=== PATIENT | female | born 1985 | race Caucasian/White ===

== ENCOUNTER 2017-02-14 11:05 | Emergency (ER) | payer SELFPAY ==
[~2017-02-14] VITALS: Ht 172.7 cm; Wt 84.0 kg
[~2017-02-14 11:05] MED LIST: FERR256T PO; IBUP-779 PO; MULT-1146 PO
[2017-02-14 19:01] LABS: BASOPHILS % 0.8 % (0.0-2.0); EOSINOPHILS % 2.4 % (0.0-5.0); HEMATOCRIT. 37.5 % (36.0-48.0); HEMOGLOBIN. 12.6 g/dL (12.0-16.0); MEAN CORPUSCULAR HEMOGLOBIN 28.6 pg (28.0-32.0); MEAN CORPUSCULAR VOLUME 84.7 fL (81.0-99.0); MEAN PLATELET VOLUME 8.4 fl (7.4-10.4); MONOCYTES % 7.3 % (2.0-8.0); NEUTROPHILS % 63.5 % (40.0-76.0); PLATELET 253 x1000/uL (130-400); RED BLOOD CELL COUNT 4.43 mill/uL (4.2-5.4); RED CELL DISTRIBUTION WIDTH 13.9 % (11.6-14.6)
[2017-02-14 19:06] LABS: CHLORIDE 107 mEq/L (98-107)
[2017-02-14 19:09] LABS: CARBON DIOXIDE 24 mEq/L (21-32)
[2017-02-14 19:10] LABS: CLARITY URINE TURBID (CLEAR); COLOR URINE YELLOW (YELLOW); GLUCOSE URINE NEGATIVE (NEGATIVE); KETONES URINE NEGATIVE (NEGATIVE); LEUKOCYTE ESTERASE URINE NEGATIVE (NEGATIVE); NITRITE URINE NEGATIVE (NEGATIVE); OCCULT BLOOD URINE NEGATIVE (NEGATIVE); PH URINE 8.5 (4.5-8.0); PROTEIN URINE NEGATIVE (NEGATIVE); SPECIFIC GRAVITY URINE 1.016 (1.005-1.030); UROBILINOGEN URINE 0.2 E.U./dL (0.2-1.0)
[2017-02-14 19:29] LABS: B-HCG QUANTITATIVE 56401 mIU/mL (<3)
[2017-02-14 20:53] VITALS: BP 126/82
== END 2017-02-14 20:54 | disposition home or self-care (01) ==
LOC: ER 18:35
DX: O20.0 Threatened abortion (principal); Z3A.01 Less than 8 weeks gestation of pregnancy
CPT/HCPCS: 36415; 76801; 80048; 81001; 84702; 85025; 86850; 86900; 99285

== ENCOUNTER 2017-09-28 10:07 | Observation (INO) | payer MEDICAID ==
[~2017-09-28] VITALS: Ht 165.1 cm; Wt 89.4 kg
== END 2017-09-28 11:55 | disposition home or self-care (01) ==
LOC: L&D 10:07
PROVIDERS: ADMIT Obstetrics & Gynecology; ATTEND Obstetrics & Gynecology
DX: O62.9 Abnormality of forces of labor, unspecified (principal); Z3A.39 39 weeks gestation of pregnancy
CPT/HCPCS: G0378 ×2

== ENCOUNTER 2017-09-30 11:39 | Observation (INO) | payer MEDICAID ==
[~2017-09-30] VITALS: Ht 167.6 cm; Wt 89.4 kg
== END 2017-09-30 12:32 | disposition home or self-care (01) ==
LOC: L&D 11:39
PROVIDERS: ADMIT Obstetrics & Gynecology; ATTEND Obstetrics & Gynecology
DX: O62.9 Abnormality of forces of labor, unspecified (principal); Z3A.39 39 weeks gestation of pregnancy
CPT/HCPCS: 99281; G0378

== ENCOUNTER 2017-10-04 23:27 | Inpatient (IN) | payer MEDICAID ==
[~2017-10-04] VITALS: Ht 167.6 cm; Wt 89.8 kg
[~2017-10-04 23:27] MED LIST changes: -IBUP-779 PO
[2017-10-05] MEDS ORDERED: DEXT 5%/LR + PITOCIN 20UNITS/L 1,000 ML IV SCH ×2 (00:16→05:10)
[2017-10-05] MEDS ORDERED: NALOXONE HCL 0.4 MG/ML 1ML VIAL IM PRN (00:30)
[2017-10-05] MEDS ORDERED: BUTORPHANOL TARTRATE 2 MG/ML VIAL IV PRN (00:30)
[2017-10-05] MEDS ORDERED: METHYLERGONOVINE MALEATE 0.2 MG/ML IM PRN (00:30)
[2017-10-05] MEDS ORDERED: MISOPROSTOL 100MCG TABLET VG SCH (00:30)
[2017-10-05] MEDS ORDERED: LIDOCAINE HCL 1% 20ML VIAL (Pyxis) INJ INFIL SCH (00:30)
[2017-10-05] MEDS: LACTATED RINGERS 1,000 ML IV SCH ×2 (01:28→01:56)
[2017-10-05 02:14] LABS: CHLORIDE 104 mEq/L (98-107)
[2017-10-05 02:15] LABS: BASOPHILS % 0.1 % (0.0-2.0); EOSINOPHILS % 0.5 % (0.0-5.0); HEMATOCRIT. 37.6 % (36.0-48.0); HEMOGLOBIN. 12.7 g/dL (12.0-16.0); LYMPHOCYTES % 15.3 % (20.0-50.0); MEAN CORPUSCULAR HEMOGLOBIN 30.8 pg (28.0-32.0); MEAN CORPUSCULAR VOLUME 91.2 fL (81.0-99.0); MEAN PLATELET VOLUME 9.6 fl (7.4-10.4); MONOCYTES % 9.2 % (2.0-8.0); NEUTROPHILS % 74.9 % (40.0-76.0); PLATELET 227 x1000/uL (130-400); RED BLOOD CELL COUNT 4.12 mill/uL (4.2-5.4); RED CELL DISTRIBUTION WIDTH 13.8 % (11.6-14.6)
[2017-10-05 02:17] LABS: CLARITY URINE CLOUDY (CLEAR); COLOR URINE YELLOW (YELLOW); KETONES URINE NEGATIVE (NEGATIVE); LEUKOCYTE ESTERASE URINE NEGATIVE (NEGATIVE); NITRITE URINE NEGATIVE (NEGATIVE); OCCULT BLOOD URINE 1+ (NEGATIVE); PH URINE 7.5 (4.5-8.0); PROTEIN URINE 1+ (NEGATIVE); SPECIFIC GRAVITY URINE 1.022 (1.005-1.030)
[2017-10-05 02:33] LABS: D-DIMER 3.83 mg/L FEU (<0.50); INR 0.9; PARTIAL THROMBOPLASTIN TIME 25.2 sec (23.4-31.0); PROTHROMBIN TIME 9.9 sec (9.4-11.6)
[2017-10-05 02:49] LABS: *BARBITURATES SCREEN URINE NEGATIVE (NEGATIVE); *BENZODIAZEPINES SCREEN URINE NEGATIVE (NEGATIVE)
[2017-10-05 02:50] LABS: *AMPHETAMINES SCREEN URINE NEGATIVE (NEGATIVE); *COCAINE SCREEN URINE NEGATIVE (NEGATIVE); CANNABINOID URINE SCREEN NEGATIVE (NEGATIVE); METHADONE URINE SCREEN NEGATIVE (NEGATIVE); OPIATES URINE SCREEN NEGATIVE (NEGATIVE); PHENCYCLIDINE URINE SCREEN NEGATIVE (NEGATIVE)
[2017-10-05] MEDS ORDERED: LIDOCAINE HCL/PF 1% 10 MG/ML 5ML VIAL IJ SCH (04:15)
[2017-10-05] MEDS ORDERED: GLYCERIN/WITCH HAZEL LEAF MEDICATED PAD TOP PRN (05:15)
[2017-10-05] MEDS ORDERED: DIPHENHYDRAMINE 25MG CAPSULE PO PRN (05:15)
[2017-10-05] MEDS ORDERED: BENZOCAINE/LANOLIN/ALOE VERA SPRAY TOP PRN (05:15)
[2017-10-05] MEDS ORDERED: ACETAMINOPHEN WITH CODEINE 300/30MG TABLET PO PRN ×2 (05:15)
[2017-10-05] MEDS ORDERED: BISACODYL 10MG SUPP PR PRN (05:15)
[2017-10-05] MEDS ORDERED: LANOLIN OINT 0.25 GM TUBE TOP PRN (05:15)
[2017-10-05] MEDS ORDERED: HEMORRHOIDAL SUPP PR PRN (05:15)
[2017-10-05 06:30] VITALS: BP 142/86
[2017-10-05 08:00] VITALS: BP 146/87
[2017-10-05] MEDS: PRENATAL VIT/FE FUMARATE/FA TABLET PO SCH (08:46)
[2017-10-05] MEDS: IBUPROFEN 400MG TABLET PO PRN ×2 (11:37→18:38)
[2017-10-05] MEDS ORDERED: TETANUS, DIPHTHERIA, PERTUSSIS VAC/PF 0.5ML (>7YR OLD) IM ONE (12:00)
[2017-10-05 12:57] LABS: HEPATITIS B SURFACE ANTIGEN NEGATIVE; RUBELLA IGG 26.6 IU/mL (4.99-10)
[2017-10-05 16:46] VITALS: BP 113/69
[2017-10-05] MEDS ORDERED: DOCUSATE SODIUM 100MG CAPSULE PO SCH (21:00)
[2017-10-05 22:00] VITALS: BP 132/73
[2017-10-06 06:00] VITALS: BP 115/71
[2017-10-06 07:08] LABS: BASOPHILS % 0.3 % (0.0-2.0); EOSINOPHILS % 1.5 % (0.0-5.0); HEMATOCRIT. 27.5 % (36.0-48.0); HEMOGLOBIN. 9.4 g/dL (12.0-16.0); LYMPHOCYTES % 22.3 % (20.0-50.0); MEAN CORPUSCULAR HEMOGLOBIN 31.3 pg (28.0-32.0); MEAN PLATELET VOLUME 9.2 fl (7.4-10.4); MONOCYTES % 7.7 % (2.0-8.0); NEUTROPHILS % 68.2 % (40.0-76.0); PLATELET 191 x1000/uL (130-400); RED BLOOD CELL COUNT 2.99 mill/uL (4.2-5.4)
[2017-10-06] MEDS: PRENATAL VIT/FE FUMARATE/FA TABLET PO SCH (09:13)
[2017-10-06 09:14] VITALS: BP 115/71
[2017-10-06] MEDS: IBUPROFEN 400MG TABLET PO PRN (09:14)
[2017-10-06] MEDS ORDERED: FERROUS SULFATE 325MG TABLET PO SCH (12:10)
== END 2017-10-06 12:00 | disposition home or self-care (01) | DRG 560 ==
LOC: L&D 23:27 → OBSVTOIN 23:27 → 7EST PP/OB 10-05 06:22
PROVIDERS: ADMIT Specialist; ATTEND Specialist
PROC: 0W8NXZZ Division of Female Perineum, External Approach (ICD-10-PCS; 2017-10-05)
PROC: 10E0XZZ Delivery of Products of Conception, External Approach (ICD-10-PCS; principal; 2017-10-05 04:32)
DX: O34.13 Maternal care for benign tumor of corpus uteri, third trimester (principal); O26.833 Pregnancy related renal disease, third trimester; Z37.0 Single live birth; D25.9 Leiomyoma of uterus, unspecified; Z3A.40 40 weeks gestation of pregnancy; N20.0 Calculus of kidney; O77.0 Labor and delivery complicated by meconium in amniotic fluid; Z83.3 Family history of diabetes mellitus; O69.81X0 Labor and delivery complicated by cord around neck, without compression, not applicable or unspecified
CPT/HCPCS: 36415; 80053; 80305; 81003; 84550; 85025; 85379; 85384; 85610; 85730; 86592; 86703; 86762; 86850; 86900; 87340; G0378; J0595; J2590; J3490; J7120; A4315

== ENCOUNTER 2024-03-12 16:16 | Emergency (ER) | payer MEDICAID, OTHER ==
[~2024-03-12] VITALS: Ht 170.2 cm; Wt 89.0 kg
[2024-03-12 16:22] VITALS: TEMP 98.9; O2SAT 99
[2024-03-12 17:00] LABS: CLARITY URINE CLOUDY (CLEAR); COLOR URINE ORANGE (YELLOW); GLUCOSE URINE NEGATIVE (NEGATIVE); KETONES URINE NEGATIVE (NEGATIVE); LEUKOCYTE ESTERASE URINE 3+ (NEGATIVE); NITRITE URINE POSITIVE (NEGATIVE); OCCULT BLOOD URINE 2+ (NEGATIVE); PH URINE 5.5 (4.5-8.0); PROTEIN URINE 2+ (NEGATIVE); SPECIFIC GRAVITY URINE 1.015 (1.005-1.030)
[2024-03-12 17:44] LABS: BASOPHILS % 0.7 % (0.0-2.0); CHLORIDE 106 mEq/L (98-107); EOSINOPHILS % 2.5 % (0.0-5.0); HEMATOCRIT. 37.8 % (36.0-48.0); HEMOGLOBIN. 12.7 g/dL (12.0-16.0); LYMPHOCYTES % 30.7 % (20.0-50.0); MEAN CORPUSCULAR HEMOGLOBIN 28.3 pg (28.0-32.0); MEAN CORPUSCULAR HGB CONC 33.5 g/dL (31.0-37.0); MEAN CORPUSCULAR VOLUME 84.4 fL (81.0-99.0); MEAN PLATELET VOLUME 8.5 fl (7.4-10.4); NEUTROPHILS % 58.1 % (40.0-76.0); PLATELET 290 x1000/uL (130-400); POTASSIUM 3.3 mEq/L (3.5-5.1); RED BLOOD CELL COUNT 4.48 mill/uL (4.2-5.4); RED CELL DISTRIBUTION WIDTH 14.1 % (11.6-14.6); SODIUM 141 mEq/L (136-145); WHITE BLOOD COUNT 8.6 x1000/uL (4.5-11.0)
[2024-03-12 17:45] LABS: CALCIUM 9.4 mg/dL (8.7-10.4); CARBON DIOXIDE 29 mEq/L (21-32)
[2024-03-12 17:50] LABS: CREATININE 0.7 mg/dL (0.6-1.0); GLUCOSE 85 mg/dL (70-105); HCG SCREEN NEGATIVE; UREA NITROGEN BLOOD 10 mg/dL (9-23)
[2024-03-12 17:52] LABS: BACTERIA URINE 3+; SQUAMOUS EPITHELIAL CELL URINE 1+ /lpf (RARE/1+)
[2024-03-12 17:52] LABS: ALANINE AMINOTRANSFERASE 38 IU/L (10-49); ALBUMIN 4.5 g/dL (3.2-4.8); ASPARTATE AMINOTRANSFERASE 27 IU/L (<34); BILIRUBIN DIRECT 0.1 mg/dL (<=3.0); BILIRUBIN TOTAL 0.4 mg/dL (0.1-1.0); PROTEIN TOTAL 7.3 g/dL (6.0-8.3)
[2024-03-12] MEDS ORDERED: KETOROLAC 30MG/ML VIAL IM ONE (20:00)
[2024-03-12] MEDS ORDERED: CEFTRIAXONE SODIUM 1G VIAL IM ONE (20:00)
[2024-03-12] MEDS ORDERED: CEFP200T13 MT (20:08)
[2024-03-12] MEDS: CEFTRIAXONE SODIUM 1G VIAL IM NR (21:46)
[2024-03-12 21:47] VITALS: BP 150/98; PULSE 72; RESP 20
[2024-03-12] MEDS: KETOROLAC 30MG/ML VIAL IM NR (21:47)
== END 2024-03-12 21:52 | disposition home or self-care (01) ==
LOC: ER 16:16
DX: N20.0 Calculus of kidney (principal); I10 Essential (primary) hypertension; Z90.49 Acquired absence of other specified parts of digestive tract
CPT/HCPCS: 99285; 74176; 80076; 80048; 81003; 84703; 85025; 36415; 96372; J0696; J1885

== ENCOUNTER 2024-04-10 23:28 | Emergency (ER) | payer OTHER ==
[~2024-04-10] VITALS: Ht 170.2 cm; Wt 90.1 kg
[~2024-04-10 23:28] MED LIST changes: +CEFP200T13 MT
[2024-04-11 00:05] VITALS: O2SAT 98
[2024-04-11] MEDS ORDERED: NAPR-1176 MT (06:35)
[2024-04-11] MEDS: IBUPROFEN 600MG TABLET PO ONE (06:58)
[2024-04-11 06:59] VITALS: BP 125/78; PULSE 74; RESP 16; TEMP 36.83628; O2SAT 98
[2024-04-11] MEDS: IBUPROFEN 800MG TABLET PO ONE (06:59)
== END 2024-04-11 07:00 | disposition home or self-care (01) ==
LOC: ER 04-11
DX: S93.402A Sprain of unspecified ligament of left ankle, initial encounter (principal); S93.602A Unspecified sprain of left foot, initial encounter; I10 Essential (primary) hypertension; Z90.49 Acquired absence of other specified parts of digestive tract; W10.9XXA Fall (on) (from) unspecified stairs and steps, initial encounter; Y93.89 Activity, other specified; Y92.89 Other specified places as the place of occurrence of the external cause; Y99.9 Unspecified external cause status
CPT/HCPCS: 81025; 73590; 73610; 73630; 99284; Z7610